=== PATIENT | male | born 1960 | race Caucasian/White ===

== ENCOUNTER 2017-02-12 02:02 | Emergency (ER) | payer BC ==
[2017-02-12] MEDS ORDERED: Ketorolac INJ* 60 MG/2 ML VIAL IM ONE (03:35)
[2017-02-12] MEDS ORDERED: LORazepam INJ* 2 MG/ML 1 ML VIAL IM ONE (03:35)
--- NOTE | 2017-02-12 03:43 | ED ---
Steven Mo Claudia, scribed for Stoney Dubon MD on 02/12/17 at 0336 . Lower Extremity - HPI Summary HPI Summary: 56 year old male presents to [facility] ED with chief complaint of right hamstring pain. Pt states she was playing kickball at 199902/11/17. Pt states he was running and then felt weakness sin his right leg and fell. he notes that it took him 25 minutes to try and get out of bed to go to the bathroom tonight which made him come to the ED.He notes it is a constant pain since sudden onset. Pt is unable to describe it. Pt denies any associated Sx of knee pain/ hip pain, fever. Pt does note that he took Tylenol which has not helped in alleviating his pain. Pt notes movement and leg extension to be an aggravating factor. - History of Current Complaint Chief Complaint: EDExtremityLower Stated Complaint: BACK PAIN Time Seen by Provider: 02/12/17 03:27 Hx Obtained From: Patient Mechanism Of Injury: Blunt Trauma Onset of Pain: Immediate, Post Accident Pain Intensity: 0 Pain Scale Used: 0-10 Numeric Timing: Constant Character Of Pain: Sharp Associated Signs And Symptoms: Positive: Negative Aggravating Factor(s): Movement Able to Bear Weight: Yes - Allergies/Home Medications Allergies/Adverse Reactions: Allergies Allergy/AdvReac Type Severity Reaction Status Date / Time Penicillins [PCN] Allergy Unknown Verified 02/12/17 02:08 Reaction Details Sulfa Antibiotics Allergy Unknown Verified 02/12/17 02:08 Reaction Details PMH/Surg Hx/FS Hx/Imm Hx Previously Healthy: Yes Endocrine/Hematology History: Denies: Hx Diabetes Cardiovascular History: Denies: Hx Myocardial Infarction Infectious Disease History: No Infectious Disease History: Denies: Traveled Outside the [place] in Last 30 Days - Family History Known Family History: Negative: Hypertension, Diabetes - Social History Occupation: Employed Full-time Lives: With Family Alcohol Use: Occasionally Substance Use Type: Reports: None Smoking Status (MU): Never Smoked Tobacco Review of Systems Constitutional: Negative Negative: Fever Eyes: Negative ENT: Negative Cardiovascular: Negative Respiratory: Negative Gastrointestinal: Negative Genitourinary: Negative Positive: Other - right hamstring pain, NO HIP OR KNEE PAIN Skin: Negative Neurological: Negative Psychological: Normal All Other Systems Reviewed And Are Negative: Yes Physical Exam Triage Information Reviewed: Yes Vital Signs On Initial Exam: Initial Vitals Temp Pulse Resp BP Pulse Ox 97.7 F 68 18 108/66 96 02/12/17 02:06 02/12/17 02:02/12/17 02:02/12/17 02:02/12/17 02:06 Vital Signs Reviewed: Yes Appearance: Positive: Well-Appearing, Pain Distress - mild discomfort Skin: Positive: Warm ENT: Positive: Hearing grossly normal Respiratory/Lung Sounds: Positive: Breath Sounds Present Cardiovascular: Positive: RRR Abdomen Description: Positive: No Organomegaly Musculoskeletal: Positive: Other - rt hamstring mildly tender, no deformity, from Neurological: Positive: Alert, Oriented to Person Place, Time Psychiatric: Positive: Affect/Mood Appropriate Diagnostics - Vital Signs Vital Signs Temp Pulse Resp BP Pulse Ox 02/12/17 02:06 97.7 F 68 18 108/66 96 - Laboratory Lab Statement: Any lab studies that have been ordered have been reviewed, and results considered in the medical decision making process. Re-Evaluation - Re-Evaluation First Eval Change: Improved Lower Extremity Course/Dx - Course Assessment/Plan: MDM: AFTER BECOMING MORE COMFORTABLE IN THE ED, THE PT PAIN SCALE HAS DECREASED. THE PT IS AGREEBALE WITH THE PLAN TO BE D/C HOME. - Diagnoses Provider Diagnoses: Leg pain Discharge - Discharge Plan Condition: Stable Disposition: HOME Prescriptions: Cyclobenzaprine TAB* [Flexeril 10 MG TAB*] 10 mg PO TID #20 tab Ibuprofen TAB* [Motrin TAB* 800 MG] 800 mg PO TID #30 tab Patient Education Materials: Ibuprofen (By mouth), Cyclobenzaprine (By mouth), Hamstring Injury (ED) Referrals: Latia Osborne MD [Primary Care Provider] - The documentation as recorded by the Steven stewart Claudia accurately reflects the service I personally performed and the decisions made by , Stoney Dubon MD.
[2017-02-12 04:45] VITALS: BP 107/61
== END 2017-02-12 04:45 | disposition home or self-care (01) ==
LOC: ED 02:02
DX: M25.561 Pain in right knee (principal); M79.604 Pain in right leg
CPT/HCPCS: 96372; 99282; J1885; J2060

== ENCOUNTER 2019-01-25 01:49 | Emergency (ER) | payer BC ==
[2019-01-25] MEDS ORDERED: NS 0.9% 1000 ML** 1,000 ML IV ONE (02:37)
[2019-01-25] MEDS ORDERED: Morphine 4 MG/ML VIAL (1 ml) 4 MG/ML VIAL IV ONE (02:37)
[2019-01-25] MEDS ORDERED: Metoclopramide IV* 5 MG/ML 2 ML VIAL IV SLOW PU ONE (02:37)
--- NOTE | 2019-01-25 02:50 | ED ---
Abdominal Pain/Male - HPI Summary HPI Summary: Patient is a 58 y/o M presenting to ED with complaints of abdominal pain. Pain is reported to have onset three days ago and was located at umbilical area. During the evening of 01/24/19, pain is reported to have radiated and become focal at RLQ. Pain has worsened throughout the night. However, patient denies N/ V, fever, decreased appetite. PMHx of restless leg syndrome for which patient takes ropinirole. PSHx of hernia repair, patient still has appendix present. Last bowel movement was yesterday morning, 01/24/19. Movement is noted to aggravate Sx. On triage, pain is rated 10/10. Home medications and allergies are reviewed. - History of Current Complaint Chief Complaint: EDAbdPain Stated Complaint: ABDOMINAL PAIN PER PT Time Seen by Provider: 01/25/19 02:28 Hx Obtained From: Patient Onset/Duration: Lasting Days - three days, Still Present, Worse Since - last night, 01/24/19 Timing: Constant, Lasting Days - three days Severity Currently: Severe Pain Intensity: 10 Pain Scale Used: 0-10 Numeric Location: Discrete At: RLQ Aggravating Factor(s): Movement Alleviating Factor(s): Nothing Associated Signs And Symptoms: Negative: Fever, Constipation, Decreased Appetite , Nausea, Vomiting - Allergies/Home Medications Allergies/Adverse Reactions: Allergies Allergy/AdvReac Type Severity Reaction Status Date / Time Penicillins Allergy Unknown Verified 01/25/19 02:37 Reaction Details Sulfa (Sulfonamide Allergy Unknown Verified 01/25/19 02:37 Antibiotics) Reaction Details Home Medications: Home Medications Alfuzosin HCl [Alfuzosin HCl ER] 30 mg PO DAILY 01/25/19 [History Confirmed ] rOPINIRole TAB* [Requip TAB*] 1 mg PO DAILY 01/25/19 [History Confirmed 01/25/19 ] PMH/Surg Hx/FS Hx/Imm Hx Endocrine/Hematology History: Denies: Hx Diabetes Cardiovascular History: Denies: Hx Myocardial Infarction Infectious Disease History: No Infectious Disease History: Denies: Traveled Outside the [place] in Last 30 Days - Family History Known Family History: Negative: Hypertension, Diabetes - Social History Alcohol Use: Occasionally Substance Use Type: Reports: None Smoking Status (MU): Never Smoked Tobacco Review of Systems Negative: Fever Gastrointestinal: Other - negative - constipation, decreased appetite Positive: Abdominal Pain. Negative: Vomiting, Nausea All Other Systems Reviewed And Are Negative: Yes Physical Exam - Summary Physical Exam Summary: VITAL SIGNS: Reviewed. GENERAL: Patient is a well-developed and nourished male who is lying comfortable in the stretcher. Patient is not in any acute respiratory distress. HEAD AND FACE: No signs of trauma. No ecchymosis, hematomas or skull depressions. No sinus tenderness. EYES: PERRLA, EOMI x 2, No injected conjunctiva, no nystagmus. EARS: Hearing grossly intact. Ear canals and tympanic membranes are within normal limits. MOUTH: Oropharynx within normal limits. NECK: Supple, trachea is midline, no adenopathy, no JVD, no carotid bruit, no c- spine tenderness, neck with full ROM CHEST: Symmetric, no tenderness at palpation LUNGS: Clear to auscultation bilaterally. No wheezing or crackles. CVS: Regular rate and rhythm, S1 and S2 present, no murmurs or gallops appreciated. ABDOMEN: Soft, RLQ tenderness with rebound. No signs of distention. No guarding , and no masses palpated. Bowel sounds are normal. EXTREMITIES: FROM in all major joints, no edema, no cyanosis or clubbing. NEURO: Alert and oriented x 3. No acute neurological deficits. Speech is normal and follows commands. SKIN: Dry and warm Triage Information Reviewed: Yes Vital Signs On Initial Exam: Initial Vitals Temp Pulse Resp BP Pulse Ox 98 F 80 18 136/77 97 01/25/19 01:52 01/25/19 01:52 01/25/19 01:52 01/25/19 01:52 01/25/19 01:52 Vital Signs Reviewed: Yes Diagnostics - Vital Signs Vital Signs Temp Pulse Resp BP Pulse Ox 01/25/19 01:52 98 F 80 18 136/77 97 - Laboratory Result Diagrams: 01/25/19 03:04 01/25/19 03:04 Lab Statement: Any lab studies that have been ordered have been reviewed, and results considered in the medical decision making process. - CT ABD/PEL CT CT Interpretation Completed By: Radiologist Summary of CT Findings: IMPRESSION: 1. No acute findings. 2. Mixed solid and groundglass. Recommend CT at 6-12 months to confirm. persistence of the nodule , then CT at 3 and at 5 years. (Edu et al.,. Fleischner Society, 2017) pulmonary nodule located in the anterior aspect of the. right middle lung. This measures 6 mm in greatest dimension. THIS REPORT WAS REVIEWED BY DR. BRYANT. Re-Evaluation - Re-Evaluation First Eval Re-Evaluation Time: 05:36 Comment: Results of labs and tests were discussed with the patient, the patient will be discharged to home with PCP follow up. Strict return precautions given. He is agreeable with discahrge to home. Abdominal Pain Male Course/Dx - Course Course Of Treatment: Patient is a 58 y/o M presenting to ED with complaints of abdominal pain. Pain is reported to have onset three days ago and was located at umbilical area. During the evening of 01/24/19, pain is reported to have radiated and become focal at RLQ. Pain has worsened throughout the night. However, patient denies N/V, fever, decreased appetite. PMHx of restless leg syndrome for which patient takes ropinirole. PSHx of hernia repair, patient still has appendix present. Last bowel movement was yesterday morning, 01/24/19. Movement is noted to aggravate Sx. On physical exam, RLQ tenderness with rebound is noted. Labs showed Hgb 13.9, Hct 40, MCH 32, glucose 115, AST 12, CRP 24.33, lipase 22, amylase 38. UA was negative. During ED course, patient received fluids, morphine 4 mg IV, reglan [address] ABD/PEL IMPRESSION: 1. No acute findings. 2. Mixed solid and groundglass. Recommend CT at 6-12 months to confirm. persistence of the nodule, then CT at 3 and at 5 years. (Edu et al.,. Fleischner Society, 2017)pulmonary nodule located in the anterior aspect of the. right middle lung. This measures 6 mm in greatest dimension. Results of labs and tests were discussed with the patient, the patient will be discharged to home with PCP follow up. Strict return precautions given. He is agreeable with discahrge to home. - Diagnoses Provider Diagnoses: Abdominal pain, Pulmonary nodule Discharge - Sign-Out/Discharge Documenting (check all that apply): Patient Departure - discharge Patient Received Moderate/Deep Sedation with Procedure: No - Discharge Plan Condition: Stable Disposition: HOME Patient Education Materials: Abdominal Pain (ED), Pulmonary Nodules (ED) Referrals: Latia Osborne MD [Primary Care Provider] - 3 Days Additional Instructions: PLEASE RETURN TO THE ED IMMEDIATELY FOR WORSENING OR CONCERNING SYMPTOMS. FOLLOW UP WITH YOUR PRIMARY CARE PHYSICIAN WITHIN THREE DAYS. FOLLOW UP WITH REPEAT CT WITH REGARDS TO PULMONARY NODULE WITHIN 6-12 MONTHS AND AGAIN IN 3, 5 YEARS - Attestation Statements Document Initiated by Scribe: Yes Documenting Scribe: LAI RIZZO Provider For Whom Scribe is Documenting (Include Credential): SKYLER BRYANT MD Scribe Attestation: ILAI, scribed for SKYLER BRYANT MD on 01/25/19 at 0547. Status of Scribe Document: Ready
[2019-01-25 03:04] LABS: Urine Appearance Clear; Urine Bilirubin Negative (Negative); Urine Blood Negative (Negative); Urine Color Yellow; Urine Glucose Negative (Negative); Urine Ketones Negative (Negative); Urine Nitrite Negative (Negative); Urine Protein Negative (Negative); Urine Urobilinogen Negative (Negative)
[2019-01-25 03:13] LABS: ABS Eosinophils 0.1 10^3/ul (0-0.6); ABS Lymphocytes 1.8 10^3/ul (1.0-4.8); ABS Monocytes 0.5 10^3/ul (0-0.8); ABS Neutrophils 5.3 10^3/ul (1.5-7.7); Eosinophil % 1.6 %; Hematocrit 40 % (42-52); Hemoglobin 13.9 g/dL (14.0-18.0); Mean Corpuscular HGB Conc 35 g/dL (31-36); Mean Corpuscular Hemoglobin 32 pg (27-31); Mean Corpuscular Volume 91 fL (80-94); Mean Platelet Volume 8.2 fL (7.4-10.4); Platelet Count 196 10^3/uL (150-450); Red Blood Count 4.34 10^6 /uL (4.18-5.48); Red Cell Distribution Width 13 % (10-15); White Blood Count 7.8 10^3/uL (3.5-10.8)
[2019-01-25 03:20] LABS: Activated Partial Thrombo Time 32.3 seconds (26.0-38.0); INR 1.03 (0.82-1.09)
[2019-01-25 03:29] LABS: Albumin/Globulin Ratio 1.5 (1-3); BUN/Creatinine Ratio 17.6 (8-20); C Reactive Protein 24.33 mg/L (<8.01); Calcium 8.8 mg/dL (8.6-10.3); EGFR African American 85.6 (>60); EGFR Non-African American 70.7 (>60); Globulin 2.6 g/dL (2-4); Potassium 4.1 mmol/L (3.5-5.0); Total Bilirubin 0.6 mg/dL (0.2-1.0); Total Protein 6.6 g/dL (6.4-8.9)
[2019-01-25] MEDS ORDERED: Iohexol 300* (CONTRAST) 10 ML SDV IV ONE (03:36)
[2019-01-25 05:54] VITALS: BP 121/76
== END 2019-01-25 05:52 | disposition home or self-care (01) ==
LOC: ED 01:49
DX: R91.1 Solitary pulmonary nodule (principal); R10.31 Right lower quadrant pain; Z88.0 Allergy status to penicillin; Z88.2 Allergy status to sulfonamides; Z79.899 Other long term (current) drug therapy
CPT/HCPCS: 36415; 74177; 80053; 81003; 82150; 83690; 83735; 85025; 85610; 85730; 86140; 96365; 96375; 99283; J2270; J2765; Q9967